=== PATIENT | male | born 1985 | race American Indian/Alaskan Native ===

== ENCOUNTER 2018-10-01 18:08 | Emergency (ER) | payer OTHER ==
--- NOTE | 2018-10-01 18:22 | Event Note ---
ED Screening Note Date of service: 10/01/18 Time: 18:21 ED Screening Note: 33 y/o male comes in for rectal bleeding and abd pain started this morning. This initial assessment/diagnostic orders/clinical plan/treatment(s) is/are subject to change based on patients health status, clinical progression and re- assessment by fellow clinical providers in the ED. Further treatment and workup at subsequent clinical providers discretion. Patient/guardian urged not to elope from the ED as their condition may be serious if not clinically assessed and managed. Initial orders include:
[2018-10-01 19:19] LABS: Hematocrit 32.4 % (35.5-45.6); Hemoglobin 10.6 gm/dl (11.8-15.2); Mean Corpuscular HGB Conc 33 % (32-34); Mean Corpuscular Volume 73 fl (84-94); Red Blood Count 4.43 M/mm3 (3.65-5.03)
[2018-10-01 19:20] LABS: Platelet Count 65 K/mm3 (140-440); Red Cell Distribution Width 20.1 % (13.2-15.2)
[2018-10-01 19:23] LABS: Alanine Aminotransferase 57 units/L (7-56); Albumin 4.8 g/dL (3.9-5); BUN/Creatinine Ratio 9; Blood Urea Nitrogen 8 mg/dL (9-20); Calcium 8.9 mg/dL (8.4-10.2); Hemolysis Index 0
[2018-10-01] MEDS ORDERED: NACL 0.9% 1000 ML 1,000 ML IV ONE (19:59)
[2018-10-01] MEDS ORDERED: ZOFRAN IV ONE (19:59)
[2018-10-01] MEDS ORDERED: BENTYL IM ONE (20:00)
[2018-10-01] MEDS ORDERED: TORADOL IV ONE (20:02)
[2018-10-01 21:20] LABS: Anisocytosis 1+; Total Cells Counted 100
[2018-10-01 21:21] LABS: Platelet Estimate Appears Decreased; Target Cells 1+
[2018-10-01 21:22] LABS: Hypochromasia 1+
--- NOTE | 2018-10-01 21:29 | Cat Scan Report ---
CT ABDOMEN AND PELVIS WITH IV CONTRAST INDICATION: Diffuse abdominal pain with hematochezia. COMPARISON: None available. TECHNIQUE: Axial CT images were obtained through the abdomen and pelvis after IV contrast. All CT scans at this location are performed using CT dose reduction for ALARA by means of automated exposure control. FINDINGS -- ABDOMEN: Lung Bases: No acute abnormality. Liver: Fatty liver.. Gallbladder: Normal. Bile Ducts: Normal. Pancreas: Normal. Spleen: Normal. Adrenals: Normal. Right Kidney and Proximal Ureter: Normal. Left Kidney and Proximal Ureter: Normal. Stomach and Bowel: Normal. Lymph Nodes: No significant adenopathy. Aorta: No significant abnormality. IVC: Normal. Additional Findings: None. FINDINGS -- PELVIS: Urinary Bladder and Distal Ureters: Normal. Reproductive Organs: No acute abnormality. Appendix: Normal. Bowel: No acute abnormality. Free Fluid: None. Lymph Nodes: No significant adenopathy. Additional Findings: None. Skeletal System: No acute abnormality. Streak artifact from distally threaded screw through the SI anni ints/sacrum. IMPRESSION: 1. No acute process in the abdomen or pelvis. Fatty liver, as above. Signer Name: Jerod Nicole MD Signed: 10/01/2018 9:24 PM Workstation Name: [id number]
--- NOTE | 2018-10-01 22:20 | Emergency Department Report ---
ED Abdominal Pain HPI - General Chief Complaint: Abdominal Pain Stated Complaint: ANAL BLEED Time Seen by Provider: 10/01/18 20:01 Source: patient Mode of arrival: Ambulatory Limitations: No Limitations - History of Present Illness Initial Comments: pt is a 33 y/o aam with hx of hemorrhoids, ETOH abuse who presents for RUQ pain and blood streak stool. pt denies n/v no back pain no sob pt is tolerating po intake, last ETOH use yesterday, last po intake tonight, symptoms are exacerbated by BM , symptoms are relieved by nothing tried. MD Complaint: abdominal pain Onset/Timin -: days(s) Location: LLQ Radiation: none Migration to: LLQ Severity: moderate Severity scale (0 -10): 3 Quality: burning Consistency: constant Improves With: nothing Worsens With: bowel movement Associated Symptoms: nausea. denies: vomiting, diarrhea, fever, chills, constipation, dysuria, hematemesis, hematochezia, melena, hematuria, anorexia, syncope - Related Data Previous Rx's Medication Instructions Recorded Last Taken Type Pantoprazole [Protonix] 40 mg PO QDAY #30 tablet 12/02/15 Unknown Rx Famotidine [Pepcid] 20 mg PO BID #60 tablet 10/01/18 Unknown Rx Hydrocortisone [Proctosol-Hc 2.5% 1 applicatio TP BID #1 tube 10/01/18 Unknown Rx TOP CREAM] Lidocaine [Lidocaine Cream] 1 applicatio TP TID PRN #1 tube 10/01/18 Unknown Rx Allergies Allergy/AdvReac Type Severity Reaction Status Date / Time No Known Allergies Allergy Unverified 12/02/15 13:39 ED Review of Systems ROS: Stated complaint: ANAL BLEED Other details as noted in HPI Constitutional: denies: chills, fever Eyes: denies: eye pain, eye discharge, vision change ENT: denies: ear pain, throat pain Respiratory: denies: cough, shortness of breath, wheezing Cardiovascular: denies: chest pain, palpitations Endocrine: no symptoms reported Gastrointestinal: abdominal pain, nausea, other (hemorrhoids). denies: vomiting, diarrhea, constipation, hematemesis, melena Genitourinary: denies: urgency, dysuria Musculoskeletal: denies: back pain, joint swelling, arthralgia Skin: denies: rash, lesions Neurological: denies: headache, weakness, paresthesias Psychiatric: denies: anxiety, depression Hematological/Lymphatic: denies: easy bleeding, easy bruising ED Past Medical Hx - Past Medical History Previous Medical History?: No - Surgical History Past Surgical History?: No - Social History Smoking Status: Current Every Day Smoker Substance Use Type: Alcohol - Medications Home Medications: Home Medications Medication Instructions Recorded Confirmed Last Taken Type Pantoprazole [Protonix] 40 mg PO QDAY #30 tablet 12/02/15 Unknown Rx Famotidine [Pepcid] 20 mg PO BID #60 tablet 10/01/18 Unknown Rx Hydrocortisone [Proctosol-Hc 2.5% 1 applicatio TP BID #1 tube 10/01/18 Unknown Rx TOP CREAM] Lidocaine [Lidocaine Cream] 1 applicatio TP TID PRN #1 tube 10/01/18 Unknown Rx ED Physical Exam - General Limitations: No Limitations General appearance: alert, in no apparent distress - Head Head exam: Present: atraumatic, normocephalic - Eye Eye exam: Present: normal appearance, PERRL, EOMI Pupils: Present: normal accommodation - ENT ENT exam: Present: mucous membranes moist - Neck Neck exam: Present: normal inspection, full ROM. Absent: tenderness, lymphadenopathy, thyromegaly - Respiratory Respiratory exam: Present: normal lung sounds bilaterally. Absent: respiratory distress, wheezes, stridor, chest wall tenderness - Cardiovascular Cardiovascular Exam: Present: regular rate, normal rhythm, normal heart sounds. Absent: systolic murmur, diastolic murmur, rubs, gallop - GI/Abdominal GI/Abdominal exam: Present: soft, tenderness (RUQ ), normal bowel sounds. Absent: distended, guarding, rebound, rigid, bruit, hernia - Expanded GI/Abdominal Exam Expanded GI/Abdominal exam: Present: Bae's sign. Absent: psoas sign, obturator sign, heel tap sign, Rovsing's sign, tenderness at Mcburney's Point, ascites - Rectal Rectal exam: Present: deferred - Extremities Exam Extremities exam: Present: normal inspection, full ROM, normal capillary refill. Absent: tenderness, pedal edema, joint swelling, calf tenderness - Back Exam Back exam: Present: normal inspection, full ROM. Absent: tenderness, CVA tenderness (R), CVA tenderness (L), muscle spasm, paraspinal tenderness, vertebral tenderness, rash noted - Neurological Exam Neurological exam: Present: alert, oriented X3, CN II-XII intact, normal gait, reflexes normal. Absent: motor sensory deficit - Psychiatric Psychiatric exam: Present: normal affect, normal mood - Skin Skin exam: Present: warm, dry, intact, normal color. Absent: rash ED Course Vital Signs 10/01/18 18:19 Temperature 98.9 F Pulse Rate 91 H Respiratory 20 Rate Blood Pressure 145/97 O2 Sat by Pulse 99 Oximetry ED Medical Decision Making - Lab Data Result diagrams: 10/01/18 18:39 10/01/18 18:39 Lab Results 10/01/18 10/01/18 Range/Units 18:39 18:39 WBC 3.7 L (4.5-11.0) K/mm3 RBC 4.43 (3.65-5.03) M/mm3 Hgb 10.6 L (11.8-15.2) gm/dl Hct 32.4 L (35.5-45.6) % MCV 73 L (84-94) fl MCH 24 L (28-32) pg MCHC 33 (32-34) % RDW 20.1 H (13.2-15.2) % Plt Count 65 L (140-440) K/mm3 Add Manual Diff Complete Total Counted 100 Seg Neuts % (Manual) 49.0 (40.0-70.0) % Band Neutrophils % 0 % Lymphocytes % (Manual) 38.0 H (13.4-35.0) % Reactive Lymphs % (Man) 1.0 % Monocytes % (Manual) 10.0 H (0.0-7.3) % Eosinophils % (Manual) 1.0 (0.0-4.3) % Basophils % (Manual) 1.0 (0.0-1.8) % Metamyelocytes % 0 % Myelocytes % 0 % Promyelocytes % 0 % Blast Cells % 0 % Nucleated RBC % 1.0 H (0.0-0.9) % Seg Neutrophils # Man 1.8 (1.8-7.7) K/mm3 Band Neutrophils # 0.0 K/mm3 Lymphocytes # (Manual) 1.4 (1.2-5.4) K/mm3 Abs React Lymphs (Man) 0.0 K/mm3 Monocytes # (Manual) 0.4 (0.0-0.8) K/mm3 Eosinophils # (Manual) 0.0 (0.0-0.4) K/mm3 Basophils # (Manual) 0.0 (0.0-0.1) K/mm3 Metamyelocytes # 0.0 K/mm3 Myelocytes # 0.0 K/mm3 Promyelocytes # 0.0 K/mm3 Blast Cells # 0.0 K/mm3 WBC Morphology Not Reportable Hypersegmented Neuts Not Reportable Hyposegmented Neuts Not Reportable Hypogranular Neuts Not Reportable Smudge Cells Not Reportable Toxic Granulation Not Reportable Toxic Vacuolation Not Reportable Dohle Bodies Not Reportable Pelger-Huet Anomaly Not Reportable Deanna Rods Not Reportable Platelet Estimate Appears decreased Clumped Platelets Not Reportable Plt Clumps, EDTA Not Reportable Large Platelets Not Reportable Giant Platelets Not Reportable Platelet Satelliting Not Reportable Plt Morphology Comment Not Reportable RBC Morphology Not Reportable Dimorphic RBCs Not Reportable Polychromasia Not Reportable Hypochromasia 1+ Poikilocytosis Not Reportable Anisocytosis 1+ Microcytosis 1+ Macrocytosis Not Reportable Spherocytes Not Reportable Pappenheimer Bodies Not Reportable Sickle Cells Not Reportable Target Cells 1+ Tear Drop Cells Not Reportable Ovalocytes Not Reportable Helmet Cells Not Reportable Perkins-Collins Bodies Not Reportable Payne Rings Not Reportable Rhys Cells Not Reportable Bite Cells Not Reportable Crenated Cell Not Reportable Elliptocytes Not Reportable Acanthocytes (Spur) Not Reportable Rouleaux Not Reportable Hemoglobin C Crystals Not Reportable Schistocytes Not Reportable Malaria parasites Not Reportable Alexis Bodies Not Reportable Hem Pathologist Commnt No Sodium 143 (137-145) mmol/L Potassium 3.6 (3.6-5.0) mmol/L Chloride 98.5 (98-107) mmol/L Carbon Dioxide 32 H (22-30) mmol/L Anion Gap 16 mmol/L BUN 8 L (9-20) mg/dL Creatinine 0.9 (0.8-1.5) mg/dL Estimated GFR > 60 ml/min BUN/Creatinine Ratio 9 % Glucose 98 (75-100) mg/dL Calcium 8.9 (8.4-10.2) mg/dL Total Bilirubin 0.30 (0.1-1.2) mg/dL AST 176 H (5-40) units/L ALT 57 H (7-56) units/L Alkaline Phosphatase 113 (35-129) units/L Total Protein 8.0 (6.3-8.2) g/dL Albumin 4.8 (3.9-5) g/dL Albumin/Globulin Ratio 1.5 % Lipase 35 (13-60) units/L - Radiology Data Radiology results: report reviewed, image reviewed Ordering Physician: REBECA PAVON NP Date of Service: 10/01/18 Procedure(s): CT abdomen pelvis w con Accession Number(s): [id number] cc: REBECA PAVON NP CT ABDOMEN AND PELVIS WITH IV CONTRAST INDICATION: Diffuse abdominal pain with hematochezia. COMPARISON: None available. TECHNIQUE: Axial CT images were obtained through the abdomen and pelvis after IV contrast. All CT scans at this location are performed using CT dose reduction for ALARA by means of automated exposure control. FINDINGS -- ABDOMEN: Lung Bases: No acute abnormality. Liver: Fatty liver.. Gallbladder: Normal. Bile Ducts: Normal. Pancreas: Normal. Spleen: Normal. Adrenals: Normal. Right Kidney and Proximal Ureter: Normal. Left Kidney and Proximal Ureter: Normal. Stomach and Bowel: Normal. Lymph Nodes: No significant adenopathy. Aorta: No significant abnormality. IVC: Normal. Additional Findings: None. FINDINGS -- PELVIS: Urinary Bladder and Distal Ureters: Normal. Reproductive Organs: No acute abnormality. Appendix: Normal. Bowel: No acute abnormality. Free Fluid: None. Lymph Nodes: No significant adenopathy. Additional Findings: None. Skeletal System: No acute abnormality. Streak artifact from distally threaded screw through the SI joints/sacrum. IMPRESSION: 1. No acute process in the abdomen or pelvis. Fatty liver, as above. Signer Name: Jerod Nicole MD Signed: 10/01/2018 9:24 PM Workstation Name: [id number] Transcribed By: CECILIA Dictated By: Jerod Nicole MD Electronically Authenticated By: Jerod Nicole MD Signed Date/Time: 10/01/182123 DD/ 19 - Medical Decision Making ct scan neg for obstruction no stones no bleeding, physical exam: moderate external hemrrhoid, plan: procotofoam, lidocaine gel, pepcid, stop etoh , pt is toleraging po intake as this time without n/v pt will follow up with GI in 2-3 days return to ed if symptoms worsen. pt dc'd to home in stable condition at this time. Critical care attestation.: If time is entered above; I have spent that time in minutes in the direct care of this critically ill patient, excluding procedure time. ED Disposition Clinical Impression: ETOH abuse Hemorrhoid Qualifiers: Hemorrhoid type: unspecified Qualified Code(s): K64.9 - Unspecified hemorrhoids Disposition: DC-01 TO HOME OR SELFCARE Is pt being admited?: No Does the pt Need Aspirin: No Condition: Stable Instructions: Hemorrhoids (ED), Diet for Ulcers and Gastritis (ED), Ga stroesophageal Reflux Disease (ED) Prescriptions: Lidocaine [Lidocaine Cream] 1 applicatio TP TID PRN #1 tube PRN Reason: pain Famotidine [Pepcid] 20 mg PO BID #60 tablet Hydrocortisone [Proctosol-Hc 2.5% TOP CREAM] 1 applicatio TP BID #1 tube Referrals: TODD REYES MD [Primary Care Provider] - 3-5 Days [facility] [Provider Group] - 3-5 Days Forms: Work/School Release Form(ED) Time of Disposition: 22:37
[2018-10-02 02:17] VITALS: BP 128/78
== END 2018-10-02 00:50 | disposition home or self-care (01) ==
LOC: ED 18:08
DX: K64.9 Unspecified hemorrhoids (principal); F10.10 Alcohol abuse, uncomplicated; F17.200 Nicotine dependence, unspecified, uncomplicated; Z79.899 Other long term (current) drug therapy
CPT/HCPCS: 36415; 74177; 80053; 83690; 85007; 85025; 96372; 96374; 96375; 99284; J0500; J1885; J2405; J7030; Q9967